=== PATIENT | male | born 1995 | race African-American/Black ===

== ENCOUNTER 2016-09-21 00:16 | Emergency (ER) | payer OTHER ==
[~2016-09-21 00:16] MED LIST: ALLEGRA; TYLENOL #3 PO
[2016-09-21 01:52] LABS: AMPHETAMINE NEG (NEG); BARBITURATES NEG (NEG); BENZODIAZEPINES NEG (NEG); COCAINE NEG (NEG); MARIJUANA POS (NEG); OPIATES NEG (NEG); TRICYCLIC ANTIDEPRESSANTS NEG (NEG); U METHADONE NEG (NEG)
== END 2016-09-21 04:46 | disposition home or self-care (01) ==
LOC: CED 00:16
PROVIDERS: Emergency Medicine
DX: F12.129 Cannabis abuse with intoxication, unspecified (principal); F17.290 Nicotine dependence, other tobacco product, uncomplicated
CPT/HCPCS: 80307; 99285